=== PATIENT | male | born 1940 | race Caucasian/White ===

== ENCOUNTER 2021-01-16 01:12 | Inpatient (IN) | payer OTHER ==
[~2021-01-16] VITALS: Ht 182.9 cm; Wt 106.5 kg
[2021-01-16 01:30] LABS: Calcium, Ionized (POC) 1.11 mmol/L (1.10-1.46); Chloride (POC) 106 mmol/L (98-108); Creatinine (POC) 1.4 mg/dL (0.8-1.3); Glucose (ISTAT POC) 157 mg/dL (70-99); Hemoglobin (POC) 11.9 g/dL (13.5-17.5); Potassium (POC) 4.4 mmol/L (3.5-5.5); Sodium (POC) 138 mmol/L (135-148); Total CO2 (POC) 23 mmol/L (21-32)
[2021-01-16 01:35] LABS: Hematocrit 35.4 % (37.0-53.0); Hemoglobin 12.1 g/dL (13.5-17.5); Mean Corpuscular HGB 30.6 pg (26.0-34.0); Mean Corpuscular HGB Conc 34.2 g/dL (31.5-36.5); Mean Corpuscular Volume 90 fL (80-100); Mean Platelet Volume 10.3 fL (9.1-12.4); Platelet Count 169 K/mm3 (150-400); RDW Coefficient Variation 13.7 % (11.7-14.2); RDW Standard Deviation 45.2 fL (35.1-46.3); Red Blood Cell Count 3.95 M/mm3 (4.30-5.90); White Blood Cell Count 9.09 K/mm3 (4.00-11.30)
[2021-01-16 01:58] LABS: Alanine Aminotransfer (ALT/SGP 24 U/L (12-78); Albumin, Blood 2.7 g/dL (3.4-5.0); Albumin/Globulin Ratio 0.7 (0.8-1.8); Alk Phos 80 U/L (50-136); Anion Gap 8 mmol/L (6-16); Aspartate Aminotrans (AST/SGOT 30 U/L (12-37); Bilirubin, Total 0.4 mg/dL (0.1-1.0); Blood Urea Nitrogen 23 mg/dL (8-24); Bun/Creatinine Ratio 17.8 (12.0-20.0); CHOL/HDL RATIO 3.3; CO2, Blood 22 mmol/L (21-32); Calcium, Blood 8.2 mg/dL (8.5-10.1); Chloride, Blood 109 mmol/L (98-108); Cholesterol 141 mg/dL (50-200); Creatinine, Blood 1.29 mg/dL (0.60-1.20); Globulin, Blood 3.9 g/dL (2.2-4.0); Glomerular Filtration Rate 54 (60-); Glucose, Blood 154 mg/dL (70-99); HDL Cholesterol 43 mg/dL (>39); LDL/HDL RATIO 1.7; Low Density Lipoprotein Chol 73 mg/dL (0-110); Potassium, Blood 4.3 mmol/L (3.5-5.5); Sodium, Blood 139 mmol/L (136-145); Total Protein, Blood 6.6 g/dL (6.4-8.2); Triglycerides 125 mg/dL (30-160); Troponin I 0.107 ng/mL (0.000-0.040); Very Low Density Lipoprot Chol 25 mg/dL (6-32)
[2021-01-16 02:35] LABS: PCO2 Arterial 30.5 mmHg (35-45); PO2 Arterial 94.3 mmHg (80-100); pH Blood Arterial 7.43 (7.35-7.45)
[2021-01-16 02:42] LABS: SARS-Cov-2 (COVID-19) PCR, MMC NEGATIVE (NEGATIVE)
[2021-01-16 04:14] LABS: PCO2 Arterial 27.2 mmHg (35-45); PO2 Arterial 84.4 mmHg (80-100)
[2021-01-16 04:15] LABS: pH Blood Arterial 7.29 (7.35-7.45)
[2021-01-16 05:04] LABS: International Normalized Ratio 1.1; Prothrombin Time Results 11.5 Sec (9.7-11.5)
[2021-01-16 05:19] LABS: BASOPHILS ABSOLUTE AUTO 0.06 K/mm3 (0.00-0.23); BASOPHILS PERCENT AUTO 0 % (0-2); EOSINOPHILS ABSOLUTE AUTO 0.09 K/mm3 (0.00-0.68); EOSINOPHILS PERCENT AUTO 1 % (0-6); Hematocrit 39.1 % (37.0-53.0); Hemoglobin 12.5 g/dL (13.5-17.5); IMMATURE GRAN ABSOLUTE AUTO 0.13 K/mm3 (0.00-0.10); IMMATURE GRAN PERCENT AUTO 1 % (0-1); LYMPHOCYTES ABSOLUTE AUTO 1.77 K/mm3 (0.84-5.20); LYMPHOCYTES PERCENT AUTO 12 % (21-46); MONOCYTES ABSOLUTE AUTO 0.68 K/mm3 (0.16-1.47); MONOCYTES PERCENT AUTO 5 % (4-13); Mean Corpuscular HGB 29.8 pg (26.0-34.0); Mean Corpuscular Volume 93 fL (80-100); NEUTROPHILS ABSOLUTE AUTO 11.69 K/mm3 (1.96-9.15); NEUTROPHILS PERCENT AUTO 81 % (41-73); Platelet Count 182 K/mm3 (150-400); RDW Coefficient Variation 13.9 % (11.7-14.2); RDW Standard Deviation 47.9 fL (35.1-46.3); Red Blood Cell Count 4.19 M/mm3 (4.30-5.90); White Blood Cell Count 14.42 K/mm3 (4.00-11.30)
[2021-01-16 05:47] LABS: PCO2 Arterial 38.7 mmHg (35-45); PO2 Arterial 72.4 mmHg (80-100); pH Blood Arterial 7.31 (7.35-7.45)
[2021-01-16 05:55] LABS: International Normalized Ratio 1.19; Prothrombin Time Results 12.4 Sec (9.7-11.5)
[2021-01-16 05:57] LABS: Albumin, Blood 2.8 g/dL (3.4-5.0); Albumin/Globulin Ratio 0.7 (0.8-1.8); Bilirubin, Total 0.5 mg/dL (0.1-1.0); Bun/Creatinine Ratio 17.1 (12.0-20.0); Calcium, Blood 8.2 mg/dL (8.5-10.1); Creatine Kinase MB 8.8 ng/mL (0.0-3.6); Creatine Kinase MB Index 3.5 (0.0-4.0); Creatinine, Blood 1.23 mg/dL (0.60-1.20); Globulin, Blood 4.1 g/dL (2.2-4.0); Potassium, Blood 4.2 mmol/L (3.5-5.5); Total Protein, Blood 6.9 g/dL (6.4-8.2)
[2021-01-16 06:05] LABS: Troponin I 1.6 ng/mL (0.000-0.040)
[2021-01-16] MEDS ORDERED: METO25 (06:11)
[2021-01-16] MEDS ORDERED: ATOR20 PO (06:11)
[2021-01-16] MEDS ORDERED: Hytrin1 MG PO (06:12)
[2021-01-16] MEDS ORDERED: OMEP20ER PO (06:12)
[2021-01-16] MEDS ORDERED: PREG150 PO (06:13)
[2021-01-16] MEDS ORDERED: Aspir 8181 MG PO (06:13)
[2021-01-16] MEDS ORDERED: CYCL10 PO (06:13)
[2021-01-16] MEDS ORDERED: DOCU100 PO (06:14)
[2021-01-16] MEDS ORDERED: INDO50 PO (06:15)
--- NOTE | 2021-01-16 07:42 | NUR ---
0500: PT ARRIVES FROM [facility] DIAGNOSIS STEMI, BALLOON PUMP IN PLACE, 1:1 AUGMENTATION NOTED, BEDSIDE REPORT FROM [facility]ART CENTER RN, PT IS ALERT AND ORIENTED, ANSWERS QUESTIONS APPROPRIATELY, IS ABLE TO STATE DATE, TIME, LOCATION, AND CIRCUMSTANCE. PT FACIAL COLOR IS NOTED PALE, NO DIAPHORESIS AT THIS TIME. PULSES VERIFIED X 4 EXTREMITIES, EQUAL AND FULL, PT DENIES NUMBNESS/TINGLING, DENIES CP/PRESSURE, DENIES SOB/DYSPNEA, OXYGEN VIA NONREBREATHER MASK AT 10 L/MIN SATS ARE 99%, BIOX PROBE IS PLACED TO FINGER OF RIGHT HAND, TR BAND IN PLACE, REVIEWED WITH HEART CENTER STAFF, NO BLEEDING FROM SITE, FINGERS ARE COOL, GOOD WAVEFORM ON BIOX NOTED. BALLOON PUMP AND QUAD LUMEN CENTRAL LINE ACCESS TO RIGHT GROIN, SITE REVIEWED WITH HEART CENTER STAFF, NO BLEEDING, SWELLING, BRUISING, OR HEMATOMA, SITE IS SOFT AT THIS TIME. PT EDUCATION PROVIDED REGARDING IMPORTANCE OF MAINTAINING RIGHT LEG STRAIGHT AND NOT ATTEMPTING TO BEND AT THE KNEE OR HIP, DISCUSSED RISK OF BLEEDING WELL BALLOON MIGRATION AND COMPLICATIONS, WILL CONTINUE TO REINFORCE. PERIPHERAL IV ACCESS IS NOTED TO LEFT AC AND LEFT FOREARM, FLUSH WELL, SITES WNL, DRESSINGS CDI. WILL CONT TO MONITOR RIGHT GROIN AND TR BAND AT LEAST EVERY 15 MINUTES, MONITOR PERIPHERAL PULSES, MENTATION, PLACE ESPINOSA CATHETER FOR HOURLY OUTPUT MONITORING, DISCUSSED PURPOSE OF ESPINOSA WITH PATIENT. 0515: DR VINSON AT BEDSIDE, PLAN IS TO TRANSFER PT, NO ACCEPTING FACILITY OF THIS TIME. 0544: RT AT BEDSIDE FOR ORDERED ABG, AMIODARONE GTT STARTED INFUSING, BOLUS ADMINISTERED IN HEART CENTER PER HEART CENTER RN. 0630: ESPINOSA CATHETER PLACED, PT TOLERATED WELL 0640: UROMETER EMPTIED AT THIS TIME, BEGINNING OF HOURLY OUTPUT MONITORING. 0708: REPORT TO ONCOMING RN, HEPARING GTT STARTED INFUSING PER PHARMACY.
[2021-01-16 08:09] LABS: Source, Urine Catheter
[2021-01-16 08:18] LABS: Appearance, Urine Clear (Clear); Bilirubin, Urine Neg (Neg); Blood, Urine 5+ (Neg); Color, Urine Yellow (P-Yellow); Glucose Qualitative, Urine Neg (Neg); Ketones, Urine 2+ (Neg); Leukocyte Esterase, Urine Neg (Neg); Nitrite, Urine Neg (Neg); Protein, Urine 2+ (Neg); Urobilinogen, Urine NORM (Normal)
[2021-01-16 08:44] LABS: White Blood Cells, Urine 0-2 /hpf (0-5)
[2021-01-16 08:46] LABS: Bacteria Rare /hpf; Red Blood Cells, Urine 50-100 /hpf (0-2); Renal Epithelial Few /hpf (0-Rare); Squamous Epithelial Cells Rare /hpf (Few)
[2021-01-16 09:15] LABS: BASOPHILS ABSOLUTE AUTO 0.05 K/mm3 (0.00-0.23); BASOPHILS PERCENT AUTO 0 % (0-2); EOSINOPHILS ABSOLUTE AUTO 0.03 K/mm3 (0.00-0.68); EOSINOPHILS PERCENT AUTO 0 % (0-6); Hematocrit 37.8 % (37.0-53.0); Hemoglobin 12.2 g/dL (13.5-17.5); IMMATURE GRAN ABSOLUTE AUTO 0.15 K/mm3 (0.00-0.10); IMMATURE GRAN PERCENT AUTO 1 % (0-1); LYMPHOCYTES ABSOLUTE AUTO 1.35 K/mm3 (0.84-5.20); LYMPHOCYTES PERCENT AUTO 9 % (21-46); MONOCYTES ABSOLUTE AUTO 0.75 K/mm3 (0.16-1.47); MONOCYTES PERCENT AUTO 5 % (4-13); Mean Corpuscular HGB 29.6 pg (26.0-34.0); Mean Corpuscular HGB Conc 32.3 g/dL (31.5-36.5); Mean Corpuscular Volume 92 fL (80-100); Mean Platelet Volume 10.6 fL (9.1-12.4); NEUTROPHILS ABSOLUTE AUTO 12.58 K/mm3 (1.96-9.15); NEUTROPHILS PERCENT AUTO 84 % (41-73); Platelet Count 203 K/mm3 (150-400); RDW Coefficient Variation 14.1 % (11.7-14.2); RDW Standard Deviation 47.4 fL (35.1-46.3); Red Blood Cell Count 4.12 M/mm3 (4.30-5.90); White Blood Cell Count 14.91 K/mm3 (4.00-11.30)
--- NOTE | 2021-01-16 10:25 | NUR ---
ASSUMED CARE BEDSIDE REPORT FROM TORIBIO RN AT 0700. PT RESTING IN BED. A&OX3. FOLLOWS SIMPLE DIRECTIONS. IABP TO RIGHT GROIN. TIMING 1:1, NOV ALARM <100, TITRATING LEVO FOR MAP>65 PER IABP. MAINTAINING SUPINE POSITION. ALL PERPHERIAL PULSES PALPABLE. CAP REFILL <3 SEC. PT PALE, COOL. SLIGHT OOZING BLOOD FROM GROIN. ABLE TO ASPIRATE 3 ML BLOOD FROM ARTERIAL PORT, CONNECTED TO TRANSDUCER AND PRESSURE BAG. NO BLOOD IN GASLINE. q1 HR I&O'S. TR BAND TO RIGHT RADIAL, DEFLATED AND REMOVED, OPSITE AND ARM BOARD IN PLACE. NO BRUISING, HEMATOMA OR BLEEDING NOTED. CVC TO RIGHT GROIN. AMIODORONE GTT AT 1 MCG/MIN, NSR, RATE 80'S ON MONITOR. HEPARIN GTT PER PHARMACY, CURRENTLY INFUSING AT 15 UNITS/KG/HR. LUNGS DIM IN BASES, 2L O2 VIA NC. ABD ROUND, SOFT, NON TENDER. BT X 4. ESPINOSA PATENT, DRAINING YELLOW URINE c PINK TINGE TO GRAVITY. PLAN TO TRANSFER TO [facility], PT AND UPDATED. WILL CONTINUE 1:1 MONITORING.
--- NOTE | 2021-01-16 18:19 | NUR ---
PENDING TRANSFER PT REMAINS ON IABP, 1:1 FREQUENCY. GOOD WAVEFORM. LEVO GTT FOR MAP>65, CURRENTLY INFUSING AT 2 MCG/MIN. SR, RATE 70'S, AMIODORONE GTT AT 0.5 MCG/MIN. HEPARIN GTT 15 UNITS/KG/HR. SLIGHT BLOODY OOZING TO RIGHT GROIN. DRESSING INTACT. SOFT, NON TENDER. NO BLEEDING TO GAS LINE. CVC TO RIGHT GROIN. PERIPHERAL PULSES PALPABLE. SKIN P/W/D. DENIES NUMBNESS OR TINGLING TO EXTREMITIES. RIGHT RADIAL DRESSING INTACT, ARM BOARD IN PLACE. LUNGS DIM IN BASES. REMAINS ON 2L O2 VIA NC. PT MEDICATED FOR BACK AND LEG PAIN c FENTANYL PRN. GOOD RELIEF. ESPINOSA PATENT, DRAINING RED URINE TO GRAVITY. PT REPORTS HX OF PROSTATE PROBLEMS. ART LINE BP ENTERED IN CAPSULE, IABP PRESSURES ENTERED UNDER VITAL SIGNS. REPORT CALLED TO SHANA ALCOCER AT [facility], AWAITING TRANSFER TEAM. WILL CONTINUE TO MONITOR UNTIL TRANSFER.
[2021-01-31] MEDS ORDERED: LOSA25 PO (10:53)
[2021-01-31] MEDS ORDERED: Flomax0.4 MG PO (10:54)
[2021-01-31] MEDS ORDERED: Carvedilol12.5 MG (10:54)
[2021-01-31] MEDS ORDERED: Plavix75 MG PO (10:55)
[2021-01-31] MEDS ORDERED: PANT40 PO (10:56)
[2021-01-31] MEDS ORDERED: VOLTAREN ARTHRI20 GM TOP (16:14)
[2021-01-31] MEDS ORDERED: CYCL10 PO (16:14)
[2021-01-31] MEDS ORDERED: Vitamin D1000 UNI1 PO (16:15)
[2021-01-31] MEDS ORDERED: Hydrocortiso453.6 G1 TOP (16:16)
[2021-01-31] MEDS ORDERED: INDO50 PO (16:16)
[2021-01-31] MEDS ORDERED: METO25ER PO (16:18)
[2021-01-31] MEDS ORDERED: Hair, Skin & N1 EACH PO (16:18)
[2021-01-31] MEDS ORDERED: GLYDO6 M2 TOP (16:18)
[2021-01-31] MEDS ORDERED: NITROGLYCERIN PR (16:21)
[2021-01-31] MEDS ORDERED: OMEP20ER PO (16:22)
[2021-01-31] MEDS ORDERED: TRANSDERM-SCOP1 EAC1 TD (16:23)
[2021-01-31] MEDS ORDERED: Terazosin HCl10 MG PO (16:23)
[2021-02-04] MEDS ORDERED: CLOP75 PO (14:52)
== END 2021-01-16 18:45 | disposition short-term general hospital (02) | DRG 270 ==
LOC: ER 01:12 → ICUE 01:35 → ICUW 01:35 → ICUE 04:58
PROVIDERS: Student in an Organized Health Care Education/Training Program; ADMIT Internal Medicine Cardiovascular Disease
PROC: 5A02210 Assistance with Cardiac Output using Balloon Pump, Continuous (ICD-10-PCS; principal; 2021-01-16)
PROC: 4A023N7 Measurement of Cardiac Sampling and Pressure, Left Heart, Percutaneous Approach (ICD-10-PCS; 2021-01-16)
PROC: B2111ZZ Fluoroscopy of Multiple Coronary Arteries using Low Osmolar Contrast (ICD-10-PCS; 2021-01-16)
PROC: B410YZZ Fluoroscopy of Abdominal Aorta using Other Contrast (ICD-10-PCS; 2021-01-16)
DX: I21.19 ST elevation (STEMI) myocardial infarction involving other coronary artery of inferior wall (principal); R57.0 Cardiogenic shock; E87.2 Acidosis; N17.9 Acute kidney failure, unspecified; E66.9 Obesity, unspecified; I10 Essential (primary) hypertension; Z79.899 Other long term (current) drug therapy; Z91.040 Latex allergy status; Z20.822 Contact with and (suspected) exposure to COVID-19; I25.10 Atherosclerotic heart disease of native coronary artery without angina pectoris; E78.5 Hyperlipidemia, unspecified; Z98.890 Other specified postprocedural states; Z79.82 Long term (current) use of aspirin; Z87.891 Personal history of nicotine dependence; I48.91 Unspecified atrial fibrillation; D63.8 Anemia in other chronic diseases classified elsewhere; K21.9 Gastro-esophageal reflux disease without esophagitis; N40.0 Benign prostatic hyperplasia without lower urinary tract symptoms; Z68.31 Body mass index [BMI] 31.0-31.9, adult; E78.00 Pure hypercholesterolemia, unspecified
CPT/HCPCS: 33967; 36415; 36556; 36600; 51703; 71045; 75625; 80047; 80053; 80061; 81001; 82550; 82553; 82803; 83735; 84484; 85014; 85025; 85027; 85347; 85610; 85730; 86850; 86900; 86901; 92941; 93005; 93010; 93308; 93321; 93458; 99152; 99153; 99285-25; A9270; C1769; C1887; C1894; C9113; J0282; J0461; J1265; J1644; J2250; J2270; J2405; J3010; J7030; J7040; J7050; J7060; Q9967; U0004

== ENCOUNTER → 2021-12-05 | Outpatient (CLI) | payer OTHER ==
[~2021-12-05] MED LIST: ATOR20 PO; Aspir 8181 MG PO; CLOP75 PO; CYCL10 PO; Carvedilol12.5 MG; DOCU100 PO; Flomax0.4 MG PO; GLYDO6 M2 TOP; Hair, Skin & N1 EACH PO; Hydrocortiso453.6 G1 TOP; Hytrin1 MG PO; INDO50 PO; LOSA25 PO; METO25; METO25ER PO; NITROGLYCERIN PR; OMEP20ER PO; PANT40 PO; PREG150 PO; Plavix75 MG PO; TRANSDERM-SCOP1 EAC1 TD; Terazosin HCl10 MG PO; VOLTAREN ARTHRI20 GM TOP; Vitamin D1000 UNI1 PO
== END ==
LOC: PLD 14:47 → LAB SHORT 14:47
DX: R21 Rash and other nonspecific skin eruption (principal)
CPT/HCPCS: 88312